=== PATIENT | female | born 1940 | race Caucasian/White ===

== ENCOUNTER 2018-12-11 12:31 | Emergency (ER) | payer MEDICARE ==
--- NOTE | 2018-12-11 12:54 | ERPHSYRPT ---
- History of Present Illness Historian: patient, family Physician History: Epigastric pain yesterday after eating pop corn. No pain now. Also has some nausea Timing/Duration: yesterday Activities at Onset: none Quality: aching Abdominal Pain Onset Location: epigastric Pain Radiation: no radiation Severity of Pain-Max: moderate Severity of Pain-Current: none Modifying Factors: Improves With: eating Associated Symptoms: nausea Previous symptoms: no prior history Allergies/Adverse Reactions: No Known Drug Allergies Allergy (Verified 12/11/18 12:56) Home Medications: Hydrochlorothiazide 25 mg [hydroDIURIL 25 MG] 1 tab PO DAILY 05/16/14 [ History] Hx Influenza Vaccination/Date Given: Yes (12/2013) Hx Pneumococcal Vaccination/Date Given: No - Review of Systems Constitutional: No Fever, No Chills Eyes: No Symptoms Ears, Nose, & Throat: No Symptoms Respiratory: No Cough, No Dyspnea Cardiac: No Chest Pain, No Edema, No Syncope Abdominal/Gastrointestinal: Abdominal Pain, Nausea, No Vomiting, No Diarrhea Genitourinary Symptoms: No Dysuria Musculoskeletal: No Back Pain, No Neck Pain Skin: No Rash Neurological: No Dizziness, No Focal Weakness, No Sensory Changes Psychological: No Symptoms Endocrine: No Symptoms All Other Systems: Reviewed and Negative - Past Medical History Pertinent Past Medical History: Yes Neurological History: No Pertinent History ENT History: No Pertinent History Cardiac History: Hypertension Respiratory History: No Pertinent History Endocrine Medical History: No Pertinent History Musculoskeletal History: No Pertinent History GI Medical History: Gallbladder Disease History: No Pertinent History Psycho-Social History: No Pertinent History Female Reproductive Disorders: No Pertinent History - Past Surgical History Past Surgical History: Yes Neuro Surgical History: No Pertinent History Cardiac: No Pertinent History Respiratory: No Pertinent History Gastrointestinal: Appendectomy Genitourinary: No Pertinent History Musculoskeletal: No Pertinent History Female Surgical History: Tubal Ligation - Social History Smoking Status: Never smoker Exposure to second hand smoke: No Drug Use: none - Nursing Vital Signs Nursing Vital Signs: Initial Vital Signs Temperature 97.4 F 12/11/18 12:48 Pulse Rate 66 12/11/18 12:48 Respiratory Rate 18 12/11/18 12:48 Blood Pressure 157/59 12/11/18 12:48 O2 Sat by Pulse Oximetry 97 12/11/18 12:48 Pain Scale Pain Intensity 0 - Physical Exam General Appearance: no apparent distress, alert Eye Exam: PERRL/EOMI, eyes nml inspection Ears, Nose, Throat Exam: normal ENT inspection, pharynx normal, moist mucous membranes Neck Exam: normal inspection, non-tender, supple, full range of motion Respiratory Exam: normal breath sounds, lungs clear, No respiratory distress Cardiovascular Exam: regular rate/rhythm, normal heart sounds Gastrointestinal/Abdomen Exam: soft, No tenderness, No mass Back Exam: normal inspection, normal range of motion, No CVA tenderness, No vertebral tenderness Extremity Exam: normal inspection, normal range of motion, pelvis stable Neurologic Exam: alert, oriented x 3, cooperative, normal mood/affect, nml cerebellar function, sensation nml, No motor deficits Skin Exam: normal color, warm, dry - Course Nursing assessment & vital signs reviewed: Yes EKG Interpreted by Me: Sinus Jorge, NORMAL AXIS, Left Bundle Branch Block, Non- specific ST Changes Ordered Tests: Active Orders 24 hr Category Date Time Status EKG-ER Only STAT Care 12/11/18 13:17 Active IV Insertion STAT Care 12/11/18 12:55 Active NPO (ED) STAT Care 12/11/18 12:55 Active ABDOMEN AND PELVIS W CONTRAST [CT] Stat Exams 12/11/18 13:17 Completed CBC W DIFF Stat Lab 12/11/18 13:00 Completed CMP Stat Lab 12/11/18 13:00 Completed CULTURE,URINE Stat Lab 12/11/18 13:51 Received LIPASE Stat Lab 12/11/18 13:00 Completed TROPONIN Stat Lab 12/11/18 13:00 Completed UA W/RFX UR CULTURE Stat Lab 12/11/18 13:51 Completed Medication Summary Generic Name Dose Route Start Last Admin Trade Name Katie PRN Reason Stop Dose Admin Sodium Chloride 1,000 mls @ 150 mls/hr 12/11/18 13:00 12/11/18 13:14 Sodium Chloride 0.9% 1000 Ml IV 01/10/19 12:59 150 mls/hr .[id number] MALGORZATA Administration Lab/Rad Data: Laboratory Result Diagrams 12/11/18 13:00 12/11/18 13:00 Laboratory Results 12/11/18 12/11/18 12/11/18 Range/Units 13:51 13:00 13:00 WBC (4.0-10.5) K/mm3 RBC (4.1-5.4) M/mm3 Hgb (12.0-16.0) gm/dl Hct (35-47) % MCV (78-100) fl MCH (26-32) pg MCHC (32-36) g/dl RDW (11.5-14.0) % Plt Count (150-450) K/mm3 MPV (6-9.5) fl Gran % (36.0-66.0) % Eos # (Auto) (0-0.5) Absolute Lymphs (auto) (1.0-4.6) Absolute Monos (auto) (0.0-1.3) Lymphocytes % (24.0-44.0) % Monocytes % (0.0-12.0) % Eosinophils % (0.00-5.0) % Basophils % (0.0-0.4) % Absolute Granulocytes (1.4-6.9) Basophils # (0-0.4) Sodium (137-145) mmol/L Potassium (3.5-5.1) mmol/L Chloride (98-107) mmol/L Carbon Dioxide (22-30) mmol/L Anion Gap (5-15) MEQ/L BUN (7-17) mg/dL Creatinine (0.52-1.04) mg/dL Estimated GFR ML/MIN Glucose (74-106) mg/dL Calcium (8.4-10.2) mg/dL Total Bilirubin (0.2-1.3) mg/dL AST (14-36) U/L ALT (0-35) U/L Alkaline Phosphatase (38-126) U/L Troponin I < 0.012 (0.000-0.034) ng/mL Serum Total Protein (6.3-8.2) g/dL Albumin (3.5-5.0) g/dL Lipase 79 (23-300) U/L Urine Color DEVONTE (YELLOW) Urine Appearance CLOUDY (CLEAR) Urine pH 5.0 (5-6) Ur Specific Preston 1.026 (1.005-1.025) Urine Protein NEGATIVE (Negative) Urine Ketones NEGATIVE (NEGATIVE) Urine Blood NEGATIVE (0-5) Johann/ul Urine Nitrite NEGATIVE (NEGATIVE) Urine Bilirubin NEGATIVE (NEGATIVE) Urine Urobilinogen 4 (0-1) mg/dL Ur Leukocyte Esterase SMALL (NEGATIVE) Urine WBC (Auto) 3-5 (0-5) /HPF Urine RBC (Auto) NONE (0-2) /HPF U Epithel Cells (Auto) FEW (FEW) /HPF Urine Bacteria (Auto) FEW (NEGATIVE) /HPF Calcium Oxalate Crystal 51-99 (NEGATIVE) /HPF Granular Casts (Auto) 25-50 (NEGATIVE) /LPF Urine Mucus (Auto) MANY (NEGATIVE) /HPF Urine Culture Reflexed YES (NO) Urine Glucose NEGATIVE (NEGATIVE) mg/dL 12/11/18 12/11/18 Range/Units 13:00 13:00 WBC 7.6 (4.0-10.5) K/mm3 RBC 4.58 (4.1-5.4) M/mm3 Hgb 13.4 (12.0-16.0) gm/dl Hct 41.4 (35-47) % MCV 90.4 (78-100) fl MCH 29.3 (26-32) pg MCHC 32.4 (32-36) g/dl RDW 13.9 (11.5-14.0) % Plt Count 266 (150-450) K/mm3 MPV 10.7 H (6-9.5) fl Gran % 57.8 (36.0-66.0) % Eos # (Auto) 0.40 (0-0.5) Absolute Lymphs (auto) 2.37 (1.0-4.6) Absolute Monos (auto) 0.39 (0.0-1.3) Lymphocytes % 31.4 (24.0-44.0) % Monocytes % 5.2 (0.0-12.0) % Eosinophils % 5.3 H (0.00-5.0) % Basophils % 0.3 (0.0-0.4) % Absolute Granulocytes 4.37 (1.4-6.9) Basophils # 0.02 (0-0.4) Sodium 144 (137-145) mmol/L Potassium 3.6 (3.5-5.1) mmol/L Chloride 105 (98-107) mmol/L Carbon Dioxide 29 (22-30) mmol/L Anion Gap 13.8 (5-15) MEQ/L BUN 21 H (7-17) mg/dL Creatinine 0.78 (0.52-1.04) mg/dL Estimated GFR > 60.0 ML/MIN Glucose 99 (74-106) mg/dL Calcium 9.9 (8.4-10.2) mg/dL Total Bilirubin 0.80 (0.2-1.3) mg/dL AST 65 H (14-36) U/L ALT 23 (0-35) U/L Alkaline Phosphatase 101 (38-126) U/L Troponin I (0.000-0.034) ng/mL Serum Total Protein 7.0 (6.3-8.2) g/dL Albumin 3.9 (3.5-5.0) g/dL Lipase (23-300) U/L Urine Color (YELLOW) Urine Appearance (CLEAR) Urine pH (5-6) Ur Specific Preston (1.005-1.025) Urine Protein (Negative) Urine Ketones (NEGATIVE) Urine Blood (0-5) Johann/ul Urine Nitrite (NEGATIVE) Urine Bilirubin (NEGATIVE) Urine Urobilinogen (0-1) mg/dL Ur Leukocyte Esterase (NEGATIVE) Urine WBC (Auto) (0-5) /HPF Urine RBC (Auto) (0-2) /HPF U Epithel Cells (Auto) (FEW) /HPF Urine Bacteria (Auto) (NEGATIVE) /HPF Calcium Oxalate Crystal (NEGATIVE) /HPF Granular Casts (Auto) (NEGATIVE) /LPF Urine Mucus (Auto) (NEGATIVE) /HPF Urine Culture Reflexed (NO) Urine Glucose (NEGATIVE) mg/dL - Progress Progress: improved, re-examined Discussed with : Osiel Will see patient in: ED Counseled pt/family regarding: lab results, diagnosis, need for follow-up - Departure Departure Disposition: Home Clinical Impression: Abdominal pain Condition: Stable Critical Care Time: No Additional Instructions: See PCP in 2-4 days, to follow up on Urine Culture report. See [facility]yn [facility]ICOLAS[facility] for Thickened Uterine mucosa
[2018-12-11] MEDS ORDERED: Sodium Chloride 0.9% 1000 ML 1,000 ML IV SCH (13:00)
[2018-12-11 13:03] VITALS: PULSE 66; O2SAT 97
[2018-12-11] MEDS ORDERED: Sodium Chloride 0.9% 1000 ML 1,000 ML ONE (13:11)
[2018-12-11 13:22] LABS: BASOPHIL % 0.3 % (0.0-0.4); Basophil (Absolute #) 0.02 (0-0.4); Eosinophil % 5.3 % (0.00-5.0); Granulocyte Absolute (ANC) 4.37 (1.4-6.9); Granulocytes % 57.8 % (36.0-66.0); Hematocrit 41.4 % (35-47); Hemoglobin 13.4 gm/dl (12.0-16.0); Lymphocyte (Absolute #) 2.37 (1.0-4.6); Lymphocytes % 31.4 % (24.0-44.0); Mean Cell Volume 90.4 fl (78-100); Mean Corpuscular Hemoglobin 29.3 pg (26-32); Mean Corpuscular Hgb Concent. 32.4 g/dl (32-36); Mean Platelet Volume 10.7 fl (6-9.5); Monocyte (Absolute #) 0.39 (0.0-1.3); Monocytes % 5.2 % (0.0-12.0); Platelet Count 266 K/mm3 (150-450); Red Blood Count 4.58 M/mm3 (4.1-5.4); Red Cell Distribution Width 13.9 % (11.5-14.0); White Blood Count 7.6 K/mm3 (4.0-10.5)
[2018-12-11 13:25] LABS: ALBUMIN 3.9 g/dL (3.5-5.0); ALKALINE PHOSPHATASE 101 U/L (38-126); ANION GAP 13.8 MEQ/L (5-15); BLOOD UREA NITROGEN 21 mg/dL (7-17); CHLORIDE 105 mmol/L (98-107); Calcium 9.9 mg/dL (8.4-10.2); Carbon Dioxide 29 mmol/L (22-30); Creatinine 1 0.78 mg/dL (0.52-1.04); Glucose 99 mg/dL (74-106); Potassium 3.6 mmol/L (3.5-5.1); SGOT/AST 65 U/L (14-36); SGPT/ALT 23 U/L (0-35); SODIUM 144 mmol/L (137-145)
[2018-12-11 14:02] VITALS: BP 164/60
--- NOTE | 2018-12-11 14:37 | XRAY ---
Indication: Midabdomen pain. Multiple contiguous axial images obtained through the abdomen and pelvis using 80 cc Isovue 370 contrast only. Comparison: None Lung bases demonstrates minimal dependent atelectasis. No infiltrate or effusion. Heart is not enlarged. Noncontrasted stomach and bowel loops appear nonobstructed. Scattered descending and sigmoid diverticulosis without diverticulitis. A few sigmoid diverticuli demonstrates concretions. Patient reports previous appendectomy and cholecystectomy. No free fluid/air. Bilateral parapelvic renal cysts. Mild fatty replaced pancreas. Uterus demonstrates endometrial cavity thickening up to 2 cm, abnormal in this presumed menopausal patient. Remaining liver, pancreas, spleen, adrenal glands, kidneys, ureters, and bladder appear unremarkable. Mild aortoiliac calcifications. No AAA or pathologic retroperitoneal lymphadenopathy. Osseous structures intact with mild degenerative changes throughout the thoracolumbar spine and mild levoscoliosis centered at L1. Impression: 1. Abnormally thickened uterine endometrial cavity in this presumed menopausal patient. Rule out malignancy. 2. Incidental colonic diverticulosis, fatty replaced pancreas, and bilateral renal cysts. 3. Remaining CT abdomen/pelvis with contrast exam is negative. CT DI 23.64
[2018-12-11 15:28] LABS: Appearance CLOUDY (CLEAR); Bacteria FEW /HPF (NEGATIVE); Bilirubin NEGATIVE (NEGATIVE); Blood NEGATIVE Ery/ul (0-5); Epithelial Cells FEW /HPF (FEW); Glucose NEGATIVE (NEGATIVE); Granular Casts 25-50 /LPF (NEGATIVE); Ketones NEGATIVE (NEGATIVE); Leukocyte Esterase SMALL (NEGATIVE); Mucus MANY /HPF (NEGATIVE); Nitrite NEGATIVE (NEGATIVE); Protein,Urine Dip NEGATIVE (Negative); Specific Gravity 1.026 (1.005-1.025); Urobilinogen 4 mg/dL (0-1)
== END 2018-12-11 15:47 | disposition home or self-care (01) ==
LOC: ED 12:31
DX: R10.9 Unspecified abdominal pain (principal)
CPT/HCPCS: 36000; 36415; 74177; 80053; 81001; 83690; 84484; 85025; 87086; 93005; 96360; 96361; 99284

== ENCOUNTER 2019-12-28 18:09 | Emergency (ER) | payer MEDICARE ==
[2019-12-28 18:56] LABS: Absolute Neutrophil Ct (ANC) 6.06 (1.4-6.9); BASOPHIL % 0.4 % (0.0-0.4); Basophil (Absolute #) 0.04 (0-0.4); Eosinophil % 6.7 % (0.00-5.0); Eosinophil (Absolute #) 0.63 (0-0.5); Hematocrit 43.1 % (35-47); Lymphocyte (Absolute #) 2.08 (1.0-4.6); Lymphocytes % 22.1 % (24.0-44.0); Mean Cell Volume 89.6 fl (78-100); Mean Corpuscular Hemoglobin 29.1 pg (26-32); Mean Corpuscular Hgb Concent. 32.5 g/dl (32-36); Mean Platelet Volume 10.9 fl (7.5-11.0); Monocyte (Absolute #) 0.59 (0.0-1.3); Monocytes % 6.3 % (0.0-12.0); Neutrophil % 64.5 % (36.0-66.0); Platelet Count 302 K/mm3 (150-450); Red Blood Count 4.81 M/mm3 (4.1-5.4); Red Cell Distribution Width 14.4 % (11.5-14.0); White Blood Count 9.4 K/mm3 (4.0-10.5)
[2019-12-28 19:16] LABS: ALBUMIN 3.9 g/dL (3.5-5.0); ALKALINE PHOSPHATASE 91 U/L (38-126); BLOOD UREA NITROGEN 16 mg/dL (7-17); CHLORIDE 108 mmol/L (98-107); Calcium 9.9 mg/dL (8.4-10.2); Carbon Dioxide 26 mmol/L (22-30); Creatinine 1 0.72 mg/dL (0.52-1.04); EST GLOMERULAR FILTRATION RATE > 60.0 ML/MIN; Glucose 109 mg/dL (74-106); MAGNESIUM 2.1 mg/dL (1.6-2.3); NT PRO BNP 214 pg/mL (0-1800); Potassium 3.9 mmol/L (3.5-5.1); SGOT/AST 26 U/L (14-36); SGPT/ALT 11 U/L (0-35); SODIUM 138 mmol/L (137-145); Total Protein 7.2 g/dL (6.3-8.2)
--- NOTE | 2019-12-28 19:42 | ERPHSYRPT ---
- History of Present Illness Time Seen by Provider: 12/28/19 18:20 Source: patient Exam Limitations: no limitations Patient Subjective Stated Complaint: Pt went to [facility] today due to having a hard time breathing, x-ray showed a 50% effusion and atilectasis, pt's oxygen on arrival was 88% on room air Triage Nursing Assessment: Pt brought in by her daughter and , hypertensive, denies pain, mild shortness of breath, no edema, lungs diminished on the left, pt began having a hard time breathing approx 1 week ago Physician History: Patient is a 79-year-old female presents to our ED for evaluation of progressive cough and shortness of breath. Patient states that she has been coughing for approximately 3 weeks. Over the past week patient has developed progressive shortness of breath. Patient went to the respiratory clinic today. Patient was considered that she may have had COVID. Patient was tested for COVID today. Results are pending. Patient also had a chest x-ray which revealed a 50% left-sided pleural effusion with atelectasis. Patient was sent to our ED for further evaluation. Upon arrival patient was found to be hypoxic in the high 80s. Patient placed on 2 L nasal cannula. Patient denies chest pain. No nausea or vomiting. No diarrhea. No rash. No trauma. Symptoms are progres sive. Symptoms are moderate in intensity. Exertion worsens symptoms. Shortness of breath improved with rest. Patient states she is otherwise healthy. Patient voices no other complaints or concerns at this time. Timing/Duration: week(s) Severity: moderate Associated Symptoms: shortness of breath, No nausea, No vomiting, No abdominal pain, No heartburn, No diaphoresis, No chest pain, No fever, No headaches, No loss of appetite, No malaise, No rash, No syncope Allergies/Adverse Reactions: No Known Drug Allergies Allergy (Verified 12/28/19 18:28) Home Medications: No Reportable Medications [No Reported Medications] 12/28/19 [History] Hx Tetanus, Diphtheria Vaccination/Date Given: No Hx Influenza Vaccination/Date Given: Yes (12/2013) Hx Pneumococcal Vaccination/Date Given: No Travel Risk - International Travel Have you traveled outside of the country in past 3 weeks: No - Coronavirus Screening Are you exhibiting any of the following symptoms?: No Close contact with a COVID-19 positive Pt in past 14-21 Days: No - Review of Systems Constitutional: No Symptoms, No Fever, No Chills Eyes: No Symptoms Ears, Nose, & Throat: No Symptoms Respiratory: No Symptoms, No Cough, No Dyspnea Cardiac: No Symptoms, No Chest Pain, No Edema, No Syncope Abdominal/Gastrointestinal: No Symptoms, No Abdominal Pain, No Nausea, No Vomiting, No Diarrhea Genitourinary Symptoms: No Symptoms, No Dysuria Musculoskeletal: No Symptoms, No Back Pain, No Neck Pain Skin: No Symptoms, No Rash Neurological: No Symptoms, No Dizziness, No Focal Weakness, No Sensory Changes Psychological: No Symptoms Endocrine: No Symptoms Hematologic/Lymphatic: No Symptoms Immunological/Allergic: No Symptoms All Other Systems: Reviewed and Negative - Past Medical History Pertinent Past Medical History: Yes Neurological History: No Pertinent History ENT History: No Pertinent History Cardiac History: Hypertension Respiratory History: No Pertinent History Endocrine Medical History: No Pertinent History Musculoskeletal History: No Pertinent History GI Medical History: Gallbladder Disease History: No Pertinent History Psycho-Social History: No Pertinent History Female Reproductive Disorders: No Pertinent History - Past Surgical History Past Surgical History: Yes Neuro Surgical History: No Pertinent History Cardiac: No Pertinent History Respiratory: No Pertinent History Gastrointestinal: Appendectomy, Cholecystectomy Genitourinary: No Pertinent History Musculoskeletal: No Pertinent History Female Surgical History: Tubal Ligation - Social History Smoking Status: Never smoker Exposure to second hand smoke: No Drug Use: none Patient Lives Alone: No - Female History Hx Now: No - Nursing Vital Signs Nursing Vital Signs: Initial Vital Signs Temperature 97.9 F 12/28/19 18:15 Pulse Rate 93 H 12/28/19 18:15 Blood Pressure 200/78 12/28/19 18:15 O2 Sat by Pulse Oximetry 96 12/28/19 18:15 Pain Scale Pain Intensity 0 - Physical Exam General Appearance: no apparent distress, alert Eye Exam: PERRL/EOMI, eyes nml inspection Ears, Nose, Throat Exam: normal ENT inspection, TMs normal, pharynx normal, moist mucous membranes Neck Exam: normal inspection, non-tender, supple, full range of motion Respiratory Exam: normal breath sounds, lungs clear, other (Diminished breath sounds left.), No respiratory distress Cardiovascular Exam: regular rate/rhythm, normal heart sounds, normal peripheral pulses Gastrointestinal/Abdomen Exam: soft, normal bowel sounds, No tenderness, No mass Back Exam: normal inspection, normal range of motion, No CVA tenderness, No vertebral tenderness Extremity Exam: normal inspection, normal range of motion, pelvis stable Neurologic Exam: alert, oriented x 3, cooperative, normal mood/affect, nml cereb ellar function, nml station & gait, sensation nml, No motor deficits Skin Exam: normal color, warm, dry, No rash Lymphatic Exam: No adenopathy SpO2: 99 O2 Delivery: Room Air - Course Nursing assessment & vital signs reviewed: Yes EKG Interpreted by Me: RATE (88), Sinus Rhythm, NORMAL AXIS, NORMAL INTERVALS - CT Exams Chest CT Interpretation: Tele-radiologist Report (. Negative for PE. Bulky mediastinal left hilar left supra clavicular and left axillary lymphadenopathy worrisome for malignancy. Primary malignancy versus metastatic. Adenopathy effaces left upper lobe bronchus with subsequent left upper lobe atelectasis. bilateral nodules) Ordered Tests: Active Orders 24 hr Category Date Time Status Sales Branch Manager STAT Care 12/28/19 18:31 Active EKG-ER Only STAT Care 12/28/19 18:30 Active IV Insertion STAT Care 12/28/19 18:30 Active IV Insertion-2nd Peripheral STAT Care 12/28/19 18:43 Active Oxygen-ED Only Nasal Cannula 2 lpm Care 12/28/19 18:43 Active Pulse Oximetry (ED) STAT Care 12/28/19 18:30 Active CHEST WITH CONTRAST [CT] Stat Exams 12/28/19 19:28 Taken CBC W DIFF Stat Lab 12/28/19 18:52 Completed CMP Stat Lab 12/28/19 18:52 Completed CULTURE,URINE Stat Lab 12/28/19 19:33 Received D-DIMER QUANTITATIVE Stat Lab 12/28/19 18:52 Completed MAGNESIUM Stat Lab 12/28/19 18:52 Completed NT PRO BNP Stat Lab 12/28/19 18:52 Completed UA W/RFX UR CULTURE Stat Lab 12/28/19 19:33 Completed Medication Summary Discontinued Medications Generic Name Dose Route Start Last Admin Trade Name Freq PRN Reason Stop Dose Admin Diphenhydramine HCl 25 mg 12/29/19 01:19 12/29/19 01:21 Benadryl 25 Mg Capsule PO 12/29/19 01:20 25 mg STAT ONE Administration Diphenhydramine HCl Confirm 12/29/19 01:21 Benadryl 25 Mg Capsule Administered 12/29/19 01:22 Dose 25 mg .ROUTE .STK-MED ONE Lab/Rad Data: Laboratory Result Diagrams 12/28/19 18:52 12/28/19 18:52 Laboratory Results 12/28/19 12/28/19 12/28/19 Range/Units 22:35 19:33 18:52 WBC (4.0-10.5) K/mm3 RBC (4.1-5.4) M/mm3 Hgb (12.0-16.0) gm/dl Hct (35-47) % MCV (78-100) fl MCH (26-32) pg MCHC (32-36) g/dl RDW (11.5-14.0) % Plt Count (150-450) K/mm3 MPV (7.5-11.0) fl Gran % (36.0-66.0) % Eos # (Auto) (0-0.5) Absolute Lymphs (auto) (1.0-4.6) Absolute Monos (auto) (0.0-1.3) Lymphocytes % (24.0-44.0) % Monocytes % (0.0-12.0) % Eosinophils % (0.00-5.0) % Basophils % (0.0-0.4) % Absolute Granulocytes (1.4-6.9) Basophils # (0-0.4) D-Dimer [id number] H* (215-500) ng/mL Sodium (137-145) mmol/L Potassium (3.5-5.1) mmol/L Chloride (98-107) mmol/L Carbon Dioxide (22-30) mmol/L Anion Gap (5-15) MEQ/L BUN (7-17) mg/dL Creatinine (0.52-1.04) mg/dL Estimated GFR ML/MIN Glucose (74-106) mg/dL Calcium (8.4-10.2) mg/dL Magnesium (1.6-2.3) mg/dL Total Bilirubin (0.2-1.3) mg/dL AST (14-36) U/L ALT (0-35) U/L Alkaline Phosphatase (38-126) U/L NT-Pro-B Natriuret Pep (0-1800) pg/mL Serum Total Protein (6.3-8.2) g/dL Albumin (3.5-5.0) g/dL Urine Color YELLOW (YELLOW) Urine Appearance SLIGHTLY CLOUDY (CLEAR) Urine pH 6.0 (5-6) Ur Specific Dauphin 1.009 (1.005-1.025) Urine Protein NEGATIVE (Negative) Urine Ketones NEGATIVE (NEGATIVE) Urine Blood SMALL (0-5) Johann/ul Urine Nitrite NEGATIVE (NEGATIVE) Urine Bilirubin NEGATIVE (NEGATIVE) Urine Urobilinogen NEGATIVE (0-1) mg/dL Ur Leukocyte Esterase LARGE (NEGATIVE) Urine WBC (Auto) 3-5 (0-5) /HPF Urine RBC (Auto) 3-5 (0-2) /HPF U Epithel Cells (Auto) RARE (FEW) /HPF Urine Bacteria (Auto) RARE (NEGATIVE) /HPF Urine Mucus (Auto) MODERATE (NEGATIVE) /HPF Urine Culture Reflexed YES (NO) Urine Glucose NEGATIVE (NEGATIVE) mg/dL SARS-CoV-2 (PCR) NEGATIVE (NEGATIVE) 12/28/19 12/28/19 Range/Units 18:52 18:52 WBC 9.4 (4.0-10.5) K/mm3 RBC 4.81 (4.1-5.4) M/mm3 Hgb 14.0 (12.0-16.0) gm/dl Hct 43.1 (35-47) % MCV 89.6 (78-100) fl MCH 29.1 (26-32) pg MCHC 32.5 (32-36) g/dl RDW 14.4 H (11.5-14.0) % Plt Count 302 (150-450) K/mm3 MPV 10.9 (7.5-11.0) fl Gran % 64.5 (36.0-66.0) % Eos # (Auto) 0.63 H (0-0.5) Absolute Lymphs (auto) 2.08 (1.0-4.6) Absolute Monos (auto) 0.59 (0.0-1.3) Lymphocytes % 22.1 L (24.0-44.0) % Monocytes % 6.3 (0.0-12.0) % Eosinophils % 6.7 H (0.00-5.0) % Basophils % 0.4 (0.0-0.4) % Absolute Granulocytes 6.06 (1.4-6.9) Basophils # 0.04 (0-0.4) D-Dimer (215-500) ng/mL Sodium 138 (137-145) mmol/L Potassium 3.9 (3.5-5.1) mmol/L Chloride 108 H (98-107) mmol/L Carbon Dioxide 26 (22-30) mmol/L Anion Gap 8.0 (5-15) MEQ/L BUN 16 (7-17) mg/dL Creatinine 0.72 (0.52-1.04) mg/dL Estimated GFR > 60.0 ML/MIN Glucose 109 H (74-106) mg/dL Calcium 9.9 (8.4-10.2) mg/dL Magnesium 2.1 (1.6-2.3) mg/dL Total Bilirubin 0.70 (0.2-1.3) mg/dL AST 26 (14-36) U/L ALT 11 (0-35) U/L Alkaline Phosphatase 91 (38-126) U/L NT-Pro-B Natriuret Pep 214 (0-1800) pg/mL Serum Total Protein 7.2 (6.3-8.2) g/dL Albumin 3.9 (3.5-5.0) g/dL Urine Color (YELLOW) Urine Appearance (CLEAR) Urine pH (5-6) Ur Specific Dauphin (1.005-1.025) Urine Protein (Negative) Urine Ketones (NEGATIVE) Urine Blood (0-5) Johann/ul Urine Nitrite (NEGATIVE) Urine Bilirubin (NEGATIVE) Urine Urobilinogen (0-1) mg/dL Ur Leukocyte Esterase (NEGATIVE) Urine WBC (Auto) (0-5) /HPF Urine RBC (Auto) (0-2) /HPF U Epithel Cells (Auto) (FEW) /HPF Urine Bacteria (Auto) (NEGATIVE) /HPF Urine Mucus (Auto) (NEGATIVE) /HPF Urine Culture Reflexed (NO) Urine Glucose (NEGATIVE) mg/dL SARS-CoV-2 (PCR) (NEGATIVE) - Progress Progress: improved Progress Note: 12/28/19 22:51 Patient reassessed. She feels well. Hypoxia resolved with [address] reveals left pleural effusion lymphadenopathy suspected metastatic cancer. Patient updated. Family at bedside. They request transfer to [facility] in [place]. Case discussed with Dr. coles, hospitalist covering [facility]. Dr. coles accepts transfer. Plan of care discussed with patient and family. They agree to transfer to [facility] for further evaluation and treatment. Dr. Serrano updated on the findings and plan of care. Discussed with : Osiel Will see patient in: other Counseled pt/family regarding: lab results, diagnosis, need for follow-up, rad results - Departure Departure Disposition: Transfer Clinical Impression: Hypoxia, Lung cancer, Pleural effusion, Lung nodules Condition: Stable Critical Care Time: No Referrals: AMILCAR SERRANO [Primary Care Provider] -
[2019-12-28 19:56] LABS: Appearance SLIGHTLY CLOUDY (CLEAR); Bacteria RARE /HPF (NEGATIVE); Bilirubin NEGATIVE (NEGATIVE); Blood SMALL Ery/ul (0-5); Epithelial Cells RARE /HPF (FEW); Glucose NEGATIVE (NEGATIVE); Ketones NEGATIVE (NEGATIVE); Leukocyte Esterase LARGE (NEGATIVE); Mucus MODERATE /HPF (NEGATIVE); Nitrite NEGATIVE (NEGATIVE); Protein,Urine Dip NEGATIVE (Negative); Specific Gravity 1.009 (1.005-1.025); Urobilinogen NEGATIVE mg/dL (0-1)
[2019-12-29] MEDS ORDERED: BENADRYL 25 MG CAPSULE PO ONE (01:19)
[2019-12-29] MEDS ORDERED: BENADRYL 25 MG CAPSULE ONE (01:21)
--- NOTE | 2019-12-29 09:15 | XRAY ---
Indication: Short of breath, cough, fatigue, and elevated d-dimer. Multiple contiguous axial images obtained through the chest using 80 cc Isovue 370 contrast and PE protocol. Comparison: None There is good opacification of the pulmonary arteries to include the lobar and segmental branches. No pulmonary embolus. Heart is not enlarged. Small pericardial effusion/thickening seen anteriorly. Aorta is normal in course and caliber. Superior mediastinum demonstrates matted lymphadenopathy, largest anterior to the great vessels measuring 3.0 x 1.6 x 2.4 cm. There is also left hilar matted lymphadenopathy effacing the left upper and left lower lobe bronchi. Subsequent postobstructive left upper lobe atelectasis. Base the neck demonstrates additional left supraclavicular lymphadenopathy minimally translating the trachea to the right. Left axilla demonstrates larger bulky lymphadenopathy, largest measuring 4.8 x 3.0 x 3.7 cm. Findings worrisome for malignancy, either primary versus metastatic. Lungs demonstrate too numerous to count centimeter/subcentimeter nodules bilaterally favoring metastasis. Large left effusion occupies more than 50% of the hemithorax with mild left lower lobe compressive atelectasis. Bony thorax intact with mild degenerative changes throughout the spine. Limited upper abdomen including adrenal glands unremarkable. Incidental cholecystectomy clips. Impression: 1. Negative pulmonary embolus. 2. Bulky mediastinal, left hilar, left supraclavicular, and left axillary lymphadenopathy worrisome for malignancy either primary versus metastatic. Left hilar adenopathy demonstrates mass effect on the bronchi with subsequent left upper lobe postobstructive atelectasis. Large left effusion presumed related. 3. Numerous small bilateral metastatic pulmonary nodules. 4. Small anterior pericardial effusion/thickening.
[2019-12-29 15:19] VITALS: BP 135/88; PULSE 90; O2SAT 95
== END 2019-12-29 15:55 | disposition short-term general hospital (02) ==
LOC: ED 18:09
DX: R09.02 Hypoxemia (principal); C34.90 Malignant neoplasm of unspecified part of unspecified bronchus or lung; I10 Essential (primary) hypertension; J90 Pleural effusion, not elsewhere classified; R91.1 Solitary pulmonary nodule
CPT/HCPCS: 36000; 36415; 71045; 71260; 80053; 81001; 83735; 83880; 85025; 85379; 87086; 93005; 93041; 94760; 99285; U0003; A9270-GY

== ENCOUNTER 2020-01-31 18:42 | Emergency (ER) | payer MEDICARE ==
--- NOTE | 2020-01-31 19:16 | ERPHSYRPT ---
- History of Present Illness Source: patient Exam Limitations: no limitations Patient Subjective Stated Complaint: Pt was having an oxygen saturation of 75- 84% at home and upon arrival to the hospital pt was 88% on room air Triage Nursing Assessment: Pt brought to the ER by her family, oxygen was at 88% upon arrival, placed on 2 L and is now at 93%, pt was SOB upon arrival, diminished breath sounds on the left, right lungs clear, pt denies pain, family states that her oxygen has been running 93-94% on room air, pt does not wear oxygen at home Physician History: Patient is a 79-year-old female with history of hypertension and recent diagno sis of lung CA with mets. Patient just recently started chemotherapy about 5 days ago. Patient was seen initially about mid-to-late December here and was transferred to [facility] for further care after discovering lung masses. Patient has otherwise been doing well until today when she felt a little bit more short of breath. Her family member checked her oxygenation and it was ranging somewhere from 78 to the low 80s. Patient denies cough, chest pain, fever or any other URI type of symptoms. denies any sick contacts recently. Timing/Duration: today Activities at Onset: none Severity of Dyspnea-Max: moderate Severity of Dyspnea-Current: mild Possible Cause: occasional episodes Modifying Factors: Improves With: activity Associated Symptoms: denies symptoms Allergies/Adverse Reactions: No Known Drug Allergies Allergy (Verified 01/31/20 19:00) Home Medications: Dexamethasone 4 mg [Decadron 4 MG] 4 mg PO BID 01/31/20 [History] Folic Acid 1 mg PO DAILY 01/31/20 [History] Hydrochlorothiazide 25 mg [hydroDIURIL 25 MG] 25 mg PO DAILY 01/31/20 [History] Hx Tetanus, Diphtheria Vaccination/Date Given: No Hx Influenza Vaccination/Date Given: Yes (12/2013) Hx Pneumococcal Vaccination/Date Given: No Travel Risk - International Travel Have you traveled outside of the country in past 3 weeks: No - Coronavirus Screening Are you exhibiting any of the following symptoms?: No Close contact with a COVID-19 positive Pt in past 14-21 Days: No - Review of Systems Constitutional: Fatigue, No Fever, No Chills Eyes: No Symptoms Ears, Nose, & Throat: No Symptoms Respiratory: Dyspnea, No Cough Cardiac: No Chest Pain, No Edema, No Syncope Abdominal/Gastrointestinal: No Abdominal Pain, No Nausea, No Vomiting, No Diarrhea Genitourinary Symptoms: No Dysuria Musculoskeletal: No Back Pain, No Neck Pain Skin: No Rash Neurological: No Dizziness, No Focal Weakness, No Sensory Changes Psychological: No Symptoms Endocrine: No Symptoms All Other Systems: Reviewed and Negative - Past Medical History Pertinent Past Medical History: Yes Neurological History: No Pertinent History ENT History: No Pertinent History Cardiac History: Hypertension Respiratory History: Lung Cancer Endocrine Medical History: No Pertinent History Musculoskeletal History: No Pertinent History GI Medical History: Gallbladder Disease History: No Pertinent History Psycho-Social History: No Pertinent History Female Reproductive Disorders: No Pertinent History - Past Surgical History Past Surgical History: Yes Neuro Surgical History: No Pertinent History Cardiac: No Pertinent History Respiratory: No Pertinent History Gastrointestinal: Appendectomy, Cholecystectomy Genitourinary: No Pertinent History Musculoskeletal: No Pertinent History Female Surgical History: Tubal Ligation - Social History Smoking Status: Never smoker Exposure to second hand smoke: No Drug Use: none Patient Lives Alone: No - Female History Hx Now: No - Nursing Vital Signs Nursing Vital Signs: Initial Vital Signs Temperature 98.3 F 01/31/20 18:48 Pulse Rate 89 01/31/20 18:48 Respiratory Rate 25 H 01/31/20 18:48 Blood Pressure 138/87 01/31/20 18:48 O2 Sat by Pulse Oximetry 92 L 01/31/20 18:48 Pain Scale Pain Intensity 0 - Physical Exam General Appearance: no apparent distress, alert Eye Exam: PERRL/EOMI Ears, Nose, Throat Exam: hearing grossly normal, normal ENT inspection Neck Exam: normal inspection, supple Respiratory Exam: airway intact, diminished breath sounds (Mainly left sided), No respiratory distress, No accessory muscle use, No crackles/rales, No rhonchi, No wheezing Cardiovascular/Chest Exam: normal heart sounds, regular rate/rhythm Abdominal/Gastrointestinal Exam: soft, No tenderness, No distention, No mass Extremity Exam: non-tender, normal range of motion, normal inspection, no calf tenderness, no pedal edema Neurologic Exam: alert, oriented x 3, cooperative, 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 LAD, mass, nodules multiple) Ordered Tests: Active Orders 24 hr Category Date Time Status [employer] STAT Care 01/31/20 19:09 Active EKG-ER Only STAT Care 01/31/20 19:08 Active EKG-ER Only STAT Care 01/31/20 22:50 Active IV Insertion STAT Care 01/31/20 19:08 Active Oxygen-ED Only Nasal Cannula 2 lpm Care 01/31/20 19:08 Active CHEST WITHOUT CONTRAST [CT] Stat Exams 01/31/20 19:09 Taken BLOOD CULTURE Stat Lab 01/31/20 20:05 Received CBC W DIFF Stat Lab 01/31/20 20:05 Completed CMP Stat Lab 01/31/20 20:05 Completed CULTURE,URINE Stat Lab 01/31/20 19:15 Results INFLUENZA A+B RAND Stat Lab 01/31/20 20:10 Completed Lactic Acid Stat Lab 01/31/20 20:21 Completed MAGNESIUM Stat Lab 01/31/20 20:05 Completed PROTIME WITH INR Stat Lab 01/31/20 20:05 Completed PTT Stat Lab 01/31/20 20:05 Completed TROPONIN Q3H Lab 01/31/20 20:05 Completed TROPONIN Q3H Lab 01/31/20 22:05 Completed TROPONIN Stat Lab 02/01/20 06:00 Completed UA W/RFX UR CULTURE Stat Lab 01/31/20 19:15 Completed Medication Summary Discontinued Medications Generic Name Dose Route Start Last Admin Trade Name Freq PRN Reason Stop Dose Admin Enoxaparin Sodium 60 mg 01/31/20 22:51 01/31/20 23:31 Enoxaparin Sodium SQ 01/31/20 22:52 60 mg STAT ONE Administration Ceftriaxone Sodium/Dextrose 1 g in 50 mls @ 100 mls/hr 01/31/20 20:05 01/31/20 20:40 Rocephin 1 Gm-D5w 50 Ml Bag IV 01/31/20 20:34 Infused STAT ONE Infusion Ceftriaxone Sodium/Dextrose Confirm 01/31/20 20:08 Rocephin 1 Gm-D5w 50 Ml Bag Administered 01/31/20 20:09 Dose 1 g in 50 mls @ ud IV .STK-MED ONE Lab/Rad Data: Laboratory Result Diagrams 01/31/20 20:05 01/31/20 20:05 Laboratory Results 02/01/20 01/31/20 01/31/20 Range/Units 06:00 22:05 20:21 WBC (4.0-10.5) K/mm3 RBC (4.1-5.4) M/mm3 Hgb (12.0-16.0) gm/dl Hct (35-47) % MCV (78-100) fl MCH (26-32) pg MCHC (32-36) g/dl RDW (11.5-14.0) % Plt Count (150-450) K/mm3 MPV (7.5-11.0) fl Gran % (36.0-66.0) % Eos # (Auto) (0-0.5) Absolute Lymphs (auto) (1.0-4.6) Absolute Monos (auto) (0.0-1.3) Lymphocytes % (24.0-44.0) % Monocytes % (0.0-12.0) % Eosinophils % (0.00-5.0) % Basophils % (0.0-0.4) % Absolute Granulocytes (1.4-6.9) Basophils # (0-0.4) PT (9.95-12.35) SECONDS INR (0.8-3.0) APTT (25.3-37.0) SECONDS Sodium (137-145) mmol/L Potassium (3.5-5.1) mmol/L Chloride (98-107) mmol/L Carbon Dioxide (22-30) mmol/L Anion Gap (5-15) MEQ/L BUN (7-17) mg/dL Creatinine (0.52-1.04) mg/dL Estimated GFR ML/MIN Glucose (74-106) mg/dL Lactic Acid 1.7 (0.4-2.0) Calcium (8.4-10.2) mg/dL Magnesium (1.6-2.3) mg/dL Total Bilirubin (0.2-1.3) mg/dL AST (14-36) U/L ALT (0-35) U/L Alkaline Phosphatase (38-126) U/L Troponin I 0.616 H* 0.700 H* (0.000-0.034) ng/mL Serum Total Protein (6.3-8.2) g/dL Albumin (3.5-5.0) g/dL Urine Color (YELLOW) Urine Appearance (CLEAR) Urine pH (5-6) Ur Specific [place] (1.005-1.025) Urine Protein (Negative) Urine Ketones (NEGATIVE) Urine Blood (0-5) Johann/ul Urine Nitrite (NEGATIVE) Urine Bilirubin (NEGATIVE) Urine Urobilinogen (0-1) mg/dL Ur Leukocyte Esterase (NEGATIVE) Urine WBC (Auto) (0-5) /HPF Urine RBC (Auto) (0-2) /HPF U Epithel Cells (Auto) (FEW) /HPF Urine Bacteria (Auto) (NEGATIVE) /HPF Urine Mucus (Auto) (NEGATIVE) /HPF Urine Culture Reflexed (NO) Urine Glucose (NEGATIVE) mg/dL Influenza Type A Ag (NEGATIVE) Influenza Type B Ag (NEGATIVE) Slides for Path Review 01/31/20 01/31/20 01/31/20 Range/Units 20:10 20:05 20:05 WBC (4.0-10.5) K/mm3 RBC (4.1-5.4) M/mm3 Hgb (12.0-16.0) gm/dl Hct (35-47) % MCV (78-100) fl MCH (26-32) pg MCHC (32-36) g/dl RDW (11.5-14.0) % Plt Count (150-450) K/mm3 MPV (7.5-11.0) fl Gran % (36.0-66.0) % Eos # (Auto) (0-0.5) Absolute Lymphs (auto) (1.0-4.6) Absolute Monos (auto) (0.0-1.3) Lymphocytes % (24.0-44.0) % Monocytes % (0.0-12.0) % Eosinophils % (0.00-5.0) % Basophils % (0.0-0.4) % Absolute Granulocytes (1.4-6.9) Basophils # (0-0.4) PT 11.9 (9.95-12.35) SECONDS INR 1.05 (0.8-3.0) APTT 23.2 L (25.3-37.0) SECONDS Sodium (137-145) mmol/L Potassium (3.5-5.1) mmol/L Chloride (98-107) mmol/L Carbon Dioxide (22-30) mmol/L Anion Gap (5-15) MEQ/L BUN (7-17) mg/dL Creatinine (0.52-1.04) mg/dL Estimated GFR ML/MIN Glucose (74-106) mg/dL Lactic Acid (0.4-2.0) Calcium (8.4-10.2) mg/dL Magnesium (1.6-2.3) mg/dL Total Bilirubin (0.2-1.3) mg/dL AST (14-36) U/L ALT (0-35) U/L Alkaline Phosphatase (38-126) U/L Troponin I 0.523 H* (0.000-0.034) ng/mL Serum Total Protein (6.3-8.2) g/dL Albumin (3.5-5.0) g/dL Urine Color (YELLOW) Urine Appearance (CLEAR) Urine pH (5-6) Ur Specific [place] (1.005-1.025) Urine Protein (Negative) Urine Ketones (NEGATIVE) Urine Blood (0-5) Johann/ul Urine Nitrite (NEGATIVE) Urine Bilirubin (NEGATIVE) Urine Urobilinogen (0-1) mg/dL Ur Leukocyte Esterase (NEGATIVE) Urine WBC (Auto) (0-5) /HPF Urine RBC (Auto) (0-2) /HPF U Epithel Cells (Auto) (FEW) /HPF Urine Bacteria (Auto) (NEGATIVE) /HPF Urine Mucus (Auto) (NEGATIVE) /HPF Urine Culture Reflexed (NO) Urine Glucose (NEGATIVE) mg/dL Influenza Type A Ag NEGATIVE (NEGATIVE) Influenza Type B Ag NEGATIVE (NEGATIVE) Slides for Path Review 01/31/20 01/31/20 01/31/20 Range/Units 20:05 20:05 19:15 WBC 12.8 H (4.0-10.5) K/mm3 RBC 4.91 (4.1-5.4) M/mm3 Hgb 14.1 (12.0-16.0) gm/dl Hct 42.5 (35-47) % MCV 86.6 (78-100) fl MCH 28.7 (26-32) pg MCHC 33.2 (32-36) g/dl RDW 14.1 H (11.5-14.0) % Plt Count 78 L (150-450) K/mm3 MPV 10.7 (7.5-11.0) fl Gran % 93.7 H (36.0-66.0) % Eos # (Auto) 0.16 (0-0.5) Absolute Lymphs (auto) 0.57 L (1.0-4.6) Absolute Monos (auto) 0.06 (0.0-1.3) Lymphocytes % 4.4 L (24.0-44.0) % Monocytes % 0.5 (0.0-12.0) % Eosinophils % 1.2 (0.00-5.0) % Basophils % 0.2 (0.0-0.4) % Absolute Granulocytes 12.01 H (1.4-6.9) Basophils # 0.02 (0-0.4) PT (9.95-12.35) SECONDS INR (0.8-3.0) APTT (25.3-37.0) SECONDS Sodium 127 L (137-145) mmol/L Potassium 3.4 L (3.5-5.1) mmol/L Chloride 99 (98-107) mmol/L Carbon Dioxide 26 (22-30) mmol/L Anion Gap 5.7 (5-15) MEQ/L BUN 22 H (7-17) mg/dL Creatinine 0.43 L (0.52-1.04) mg/dL Estimated GFR > 60.0 ML/MIN Glucose 113 H (74-106) mg/dL Lactic Acid (0.4-2.0) Calcium 8.4 (8.4-10.2) mg/dL Magnesium 2.0 (1.6-2.3) mg/dL Total Bilirubin 1.40 H (0.2-1.3) mg/dL AST 55 H (14-36) U/L ALT 88 H (0-35) U/L Alkaline Phosphatase 71 (38-126) U/L Troponin I (0.000-0.034) ng/mL Serum Total Protein 5.1 L (6.3-8.2) g/dL Albumin 2.7 L (3.5-5.0) g/dL Urine Color DEVONTE (YELLOW) Urine Appearance CLOUDY (CLEAR) Urine pH 7.0 (5-6) Ur Specific [place] 1.017 (1.005-1.025) Urine Protein NEGATIVE (Negative) Urine Ketones NEGATIVE (NEGATIVE) Urine Blood SMALL (0-5) Johann/ul Urine Nitrite NEGATIVE (NEGATIVE) Urine Bilirubin NEGATIVE (NEGATIVE) Urine Urobilinogen 4 (0-1) mg/dL Ur Leukocyte Esterase MODERATE (NEGATIVE) Urine WBC (Auto) 16-25 (0-5) /HPF Urine RBC (Auto) 16-25 (0-2) /HPF U Epithel Cells (Auto) RARE (FEW) /HPF Urine Bacteria (Auto) MODERATE (NEGATIVE) /HPF Urine Mucus (Auto) SLIGHT (NEGATIVE) /HPF Urine Culture Reflexed YES (NO) Urine Glucose NEGATIVE (NEGATIVE) mg/dL Influenza Type A Ag (NEGATIVE) Influenza Type B Ag (NEGATIVE) Slides for Path Review YES EKG #2 done due to rising troponin. Still no CP. Pt stable/comfortable. EKG shows no acute changes. No STEMI. NSR 81, LVH, NSTW changes. - Progress Progress: improved Air Movement: good Progress Note: 01/31/20 21:42 D/w Dr. Jeter-will accept pt for transfer. No beds at this time. Will be placed on transfer list. 02/01/20 07:00 O2 given. Repeat trop saw rise to 0.7. Repeat this morning at 0600 shows decline of 0.61 Pt without CP and resting comfortably. Will transfer pt care to Dr Luna. Blood Culture(s) Obtained: Yes Antibiotics given: Yes Counseled pt/family regarding: lab results, diagnosis, rad results - Departure Departure Disposition: Transfer ([facility]) Clinical Impression: Hypoxia, Pleural effusion, Lung cancer, Lung nodules, UTI (urinary tract infect ion) Condition: Stable Critical Care Time: No Referrals: AMILCAR BISHOP [Primary Care Provider] -
[2020-01-31 19:41] LABS: Appearance CLOUDY (CLEAR); Bacteria MODERATE /HPF (NEGATIVE); Bilirubin NEGATIVE (NEGATIVE); Blood SMALL Ery/ul (0-5); Epithelial Cells RARE /HPF (FEW); Glucose NEGATIVE (NEGATIVE); Ketones NEGATIVE (NEGATIVE); Leukocyte Esterase MODERATE (NEGATIVE); Mucus SLIGHT /HPF (NEGATIVE); Nitrite NEGATIVE (NEGATIVE); Protein,Urine Dip NEGATIVE (Negative); Specific Gravity 1.017 (1.005-1.025); Urobilinogen 4 mg/dL (0-1)
[2020-01-31] MEDS ORDERED: ROCEPHIN 1 Gm-D5w 50 ml Bag** 1 G/50 ML IVPB IV ONE ×2 (20:05→20:08)
[2020-01-31 20:15] LABS: Absolute Neutrophil Ct (ANC) 12.01 (1.4-6.9); BASOPHIL % 0.2 % (0.0-0.4); Basophil (Absolute #) 0.02 (0-0.4); Eosinophil % 1.2 % (0.00-5.0); Eosinophil (Absolute #) 0.16 (0-0.5); Hematocrit 42.5 % (35-47); Hemoglobin 14.1 gm/dl (12.0-16.0); Lymphocyte (Absolute #) 0.57 (1.0-4.6); Lymphocytes % 4.4 % (24.0-44.0); Mean Cell Volume 86.6 fl (78-100); Mean Corpuscular Hemoglobin 28.7 pg (26-32); Mean Corpuscular Hgb Concent. 33.2 g/dl (32-36); Mean Platelet Volume 10.7 fl (7.5-11.0); Monocyte (Absolute #) 0.06 (0.0-1.3); Monocytes % 0.5 % (0.0-12.0); Neutrophil % 93.7 % (36.0-66.0); Platelet Count 78 K/mm3 (150-450); Red Blood Count 4.91 M/mm3 (4.1-5.4); Red Cell Distribution Width 14.1 % (11.5-14.0); White Blood Count 12.8 K/mm3 (4.0-10.5)
[2020-01-31 20:32] LABS: INR 1.05 (0.8-3.0); PROTIME 11.9 SECONDS (9.95-12.35)
[2020-01-31 20:35] LABS: PTT 23.2 SECONDS (25.3-37.0)
[2020-01-31 20:36] LABS: ALBUMIN 2.7 g/dL (3.5-5.0); ALKALINE PHOSPHATASE 71 U/L (38-126); ANION GAP 5.7 MEQ/L (5-15); BLOOD UREA NITROGEN 22 mg/dL (7-17); CHLORIDE 99 mmol/L (98-107); Calcium 8.4 mg/dL (8.4-10.2); Carbon Dioxide 26 mmol/L (22-30); Creatinine 1 0.43 mg/dL (0.52-1.04); EST GLOMERULAR FILTRATION RATE > 60.0 ML/MIN; Glucose 113 mg/dL (74-106); Potassium 3.4 mmol/L (3.5-5.1); SGOT/AST 55 U/L (14-36); SGPT/ALT 88 U/L (0-35); SODIUM 127 mmol/L (137-145); Total Protein 5.1 g/dL (6.3-8.2)
[2020-01-31 20:39] LABS: INFLUENZA A NEGATIVE (NEGATIVE); INFLUENZA B NEGATIVE (NEGATIVE)
[2020-01-31 22:27] LABS: Slide Review 1 YES
[2020-01-31] MEDS ORDERED: ENOXAPARIN SODIUM SQ ONE (22:51)
--- NOTE | 2020-02-01 08:51 | XRAY ---
Indication: Short of breath. History lung carcinoma. Multiple contiguous axial images obtained through the chest without contrast as ordered. Comparison: December 28, 2019. Grossly stable supraclavicular, left axillary, mediastinal, and left hilar lymphadenopathy again worrisome for primary versus metastatic malignancy. Left hilar lymphadenopathy continues to efface the left upper and lesser degree left lower lobe bronchi with subsequent postobstructive left upper lobe atelectasis. Lungs again demonstrates numerous scattered tiny metastatic nodules and moderate left effusion grossly unchanged. Heart is not enlarged with stable tiny pericardial effusion/thickening anteriorly. Aorta is normal in course and caliber. Bony thorax again demonstrates mild osteopenia and degenerative changes throughout the spine. Limited upper abdomen again demonstrates cholecystectomy clips. Impression: 1. Grossly stable mediastinal, left hilar, left supraclavicular, and left axillary lymphadenopathy again primary versus metastatic malignancy. Left hilar adenopathy continues to demonstrate mass effect with stable left upper lobe postobstructive atelectasis and stable left effusion. 2. Grossly stable bilateral metastatic pulmonary nodules. 3. No new cardiopulmonary abnormalities on this noncontrast exam.
[2020-02-01 11:05] VITALS: O2SAT 95
[2020-02-01 14:55] VITALS: BP 138/91; PULSE 91
== END 2020-02-01 15:40 | disposition short-term general hospital (02) ==
LOC: ED 18:42
DX: R09.02 Hypoxemia (principal); C34.90 Malignant neoplasm of unspecified part of unspecified bronchus or lung; Z79.899 Other long term (current) drug therapy; J90 Pleural effusion, not elsewhere classified; N39.0 Urinary tract infection, site not specified; R79.89 Other specified abnormal findings of blood chemistry; I10 Essential (primary) hypertension
CPT/HCPCS: 36000; 36415; 71250; 80053; 81001; 83605; 83735; 84484; 85025; 85610; 85730; 87040; 87077; 87086; 87186; 87400; 93005; 93041; 96365; 96372; 99285; J0696; J1650